=== PATIENT | male | born 1980 | race Caucasian/White ===

== ENCOUNTER 2018-11-22 06:22 | Emergency (ER) | payer OTHER ==
[~2018-11-22] VITALS: Ht 177.8 cm; Wt 81.6 kg
[2018-11-22] MEDS ORDERED: SODIUM CHLORIDE 0.9% 1,000 ML IV ONE (06:54)
[2018-11-22 07:28] LABS: Alanine Aminotransferase 81 U/L (16-61); Albumin 4.4 g/dL (3.4-5.0); Anion Gap 11 (5-15); Blood Urea Nitrogen 3 mg/dL (7-18); Carbon Dioxide 24 mmol/L (21-32); Chloride 101 mmol/L (98-107); Glucose 90 mg/dL (74-106); Potassium 3.9 mmol/L (3.5-5.1); Sodium 136 mmol/L (136-145)
[2018-11-22 07:29] LABS: INR 3.57 (0.9-1.15); Partial Thromboplastin Time 44.3 sec (23.64-32.05)
[2018-11-22 07:33] LABS: Alkaline Phosphatase 69 U/L (45-117); Aspartate Aminotransferase 75 U/L (15-37); BUN/Creatinine Ratio 3.7; Bilirubin, Total 0.5 mg/dL (0.2-1.0); GFR African American 136 mL/min; GFR Non-African American 113 mL/min; Total Protein 7.6 g/dL (6.4-8.2)
[2018-11-22 07:47] LABS: Basophils # (auto) 0.1 uL; Basophils % (auto) 1.4 % (0.0-2.0); Eosinophils # (auto) 0.1 uL; Hematocrit 45.9 % (41.0-53.0); Hemoglobin 15.9 g/dL (13.5-17.5); Lymphocytes # (auto) 1.3 uL; Lymphocytes % (auto) 26.7 % (10.0-50.0); Mean Corpuscular Hemoglobin 33.8 pg (28.0-32.0); Mean Corpuscular Hgb Conc. 34.6 g/dL (32.0-36.0); Mean Corpuscular Volume 97.5 fL (80.0-100.0); Monocytes # (auto) 0.4 uL; Monocytes % (auto) 8.5 % (0.0-12.0); Neutrophils # (auto) 2.8 uL; Neutrophils % (auto) 60.4 % (37.0-80.0); Nucleated Red Blood Cells % 0.1 %; Platelet Count (auto) 182 10^3/uL (140-450); Red Blood Cells 4.71 10^6/uL (4.5-5.90); Red Cell Distribution Width 13.1 % (11.8-14.3); White Blood Cell 4.7 10^3/uL (4.4-10.8)
[2018-11-22 07:51] LABS: Urine Bacteria NONE SEEN /hpf (None Seen); Urine Blood Negative /uL (Negative); Urine Specific Gravity 1.002 (1.001-1.035); Urine WBC <1 /hpf (0 - 3)
[2018-11-22 08:37] VITALS: BP 141/78
== END 2018-11-22 09:38 | disposition home or self-care (01) ==
LOC: EDBD 06:22 → ER 06:22
DX: R42 Dizziness and giddiness (principal); F17.210 Nicotine dependence, cigarettes, uncomplicated; Z88.6 Allergy status to analgesic agent; Z90.89 Acquired absence of other organs
CPT/HCPCS: 36415; 70450; 80053; 81001; 84484; 85025; 85610; 85730; 93005; 96360